=== PATIENT | male | born 1960 | race Two or more races ===

== ENCOUNTER 2024-06-30 14:35 | Outpatient (RCR) | payer MEDICAID, SELFPAY | END 2024-07-26 23:59 | disposition home or self-care (01) | LOC: SCTC 14:35 | PROVIDERS: PCP Nurse Practitioner Family; Referring Provider Nurse Practitioner Family; Visit Provider Nurse Practitioner Family | DX: D69.6 Thrombocytopenia, unspecified (principal); R91.1 Solitary pulmonary nodule; K74.60 Unspecified cirrhosis of liver; Z86.19 Personal history of other infectious and parasitic diseases; R91.8 Other nonspecific abnormal finding of lung field; Z87.891 Personal history of nicotine dependence | CPT/HCPCS: 99212; G0463 ==

== ENCOUNTER → 2024-07-28 | Outpatient (CLI) | payer MEDICAID, SELFPAY ==
--- NOTE | 2024-07-28 14:00 | XR_ITS ---
Examination: CT chest with intravenous contrast CT chest without intravenous contrast 2-D reconstructions Date and time of exam:July 28, [address] chest November 23, 2023, PET CT scan March 01, 2024 INDICATIONS: Thrombocytopenia diagnosis, 3 mm pulmonary nodule right lower lobe 4 mm pulmonary nodule right lower lobe on CT chest November 23, 2023, pulmonary mass in the right paratracheal region 24 x [address] scan March 01, 2024 CTDI:vol (mGy) 17.89 DLP: (mGycm) 691 Technique: Multiple axial sections of the thorax have been obtained. 3 mm slice thickness, from the hemidiaphragms to above the apices of the lungs. Mediastinal and lung density settings have been obtained. Intravenous contrast administered 60 cc Isovue-370. Noncontrast images have also been obtained. 2-D sagittal coronal images obtained. Low dose protocols were performed. One or more of the following dose reduction techniques were used; automated exposure control, adjustment of the mA and/or KV according to patient size, use of iterative reconstruction technique. Findings: No thoracic aortic aneurysm dilatation Pulmonary artery opacification is poor Stable stable high right paratracheal lesion, 20 mm compared to 24 mm on the prior study Stable 3 mm pulmonary nodule right lower lobe No interval pulmonary nodules No interval pneumonia or pulmonary edema No visualized liver or splenic lesion No pancreatic mass Moderate osteopenia IMPRESSION: No new pulmonary nodules compared with November 23, 2023
== END | disposition home or self-care (01) ==
LOC: SCAT 13:28
PROVIDERS: Referring Provider Internal Medicine Hematology & Oncology; Visit Provider Internal Medicine Hematology & Oncology
DX: R91.8 Other nonspecific abnormal finding of lung field (principal)
CPT/HCPCS: 71270; A4649; Q9967

== ENCOUNTER 2024-08-31 14:07 | Outpatient (RCR) | payer MEDICAID, SELFPAY ==
--- NOTE | 2024-08-31 15:42 | CTCFLWUP_ITS ---
Patient: ROLLY RINALDI : 1960 Page 2 of 2 FOLLOW UP NOTE DATE OF SERVICE: 08/31/2024 NAME: ROLLY RINALDI ACCOUNT: [id number] : 1960 AGE: 63 INTERVAL HISTORY: Patient doing well and have no complaints. Patient do not use cigarettes or alcohol. Denies any bleeding or bruising. Patient here to discuss CT scan results HISTORY OF PRESENT ILLNESS: Mr. Rinaldi is here at [facility] for follow-up visit. We received records from Dr. Torres, cardiothoracic surgeon, patient had a consultation on 02/01/2024 for recommended mediastinoscopy for biopsy of paratracheal adenopathy, according to the notes patient refused biopsy, they had difficulty getting him into the office for consultation as he canceled multiple times prior to consultation. Patient was again referred to contour grinder for bronchoscopy biopsy of pulmonary nodule in right lobe, patient reports he had a consultation with Dr. Prabhakar from [place], we do not have records. Patient does not remember when his follow-up appointment with Dr. Pamela bucio. Patient reports he had a followed up with GI in [place] earlier this year, was recommended to proceed with endoscopy, patient has not scheduled self for follow-up appointment. We do not have records from previous colonoscopy that he had done. Patient has a history of noncompliance. Patient smokes marijuana every day. History of smoking cigarettes. Patient complaining today of feeling tired, decreased appetite. Patient denies cough abdominal pain fever night sweats. Patient denies bleeding concerns, denies black stools, bright red stools blood per rectum. HISTORY: Rolly Rinaldi is a 63-year-old ENG speaking male referred to hematology clinic for thrombocytopenia. According to Mr. Rinaldi he was initially told about thrombocytopenia more than 10 years ago. Previous cigarette smoker about 30 years ago, one pack per day, quit cigarettes 20 years ago, current every day marijuana smoker. 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 02/07/2022: Platelet count 85,000, WBC 6.6, ANC 4.3, hemoglobin 14.3, MCV 92, creatinine 0.85, AST 22, ALT 16, T. bili 0.6, TSH 1.73, T47.3, 04/02/2022: Platelet count 72,000, WBC 5.5, ANC 3.6, hemoglobin 13.5, MCV 95. 03/12/2023: Platelet count 98,000, WBC 5.4, ANC 3.7, hemoglobin 14.6, MCV 92 04/22/2023: Platelet count 95,000, WBC 5.5, ANC 3.2, hemoglobin 14.3, MCV 94, hepatitis C antibody reactive, AFP 5.2 05/05/2023: CT of abdomen and pelvis with contrast- 05/13/2023: Platelet count 92,000, WBC 5.5, ANC 3.1, hemoglobin 13.7, MCV 93 05/14/2023 CT of the chest without contrast- 07/13/2023: Platelet count 89,000, WBC 4.4, ANC 2.6, hemoglobin 14.0, MCV 90 11/18/2023: Platelet count 82,000, WBC 4.1, ANC 2.6, hemoglobin 14.0, MCV 93 11/23/2023: CT chest with contrast 12/25/2023: Platelet count 62,000, WBC 4.9, ANC 3.0, hemoglobin 13.4, MCV 92 01/25/2024: Consultation with cardiothoracic surgeon, Dr. Torres 03/01/2024: PET/CT 03/11/2024: Platelet count 75,000, WBC 5.0, ANC 2.0, hemoglobin 13.0, MCV 93 05/17/2024: AFP 2.9 07/28/2024 CT scan shows no new pulmonary nodules compared with November 23, 2023. 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 amlodipine - 10 mg 1 tab Daily 2. busPIRone - 5 mg 1 tab Twice a Day 3. lisinopril - 40 mg 1 tab Daily 4. risperiDONE - 0.5 mg 1 tab Daily Medications Last Reconciled by Trudy Escamilla MA on 08/31/2024 ALLERGIES: No Known Drug Allergies REVIEW OF SYSTEMS: A complete 14-point review of systems was performed and is negative except as noted in interval history. PHYSICAL EXAMINATION: VITAL SIGNS: Temperature?98.2, B/P?153/75, Oxygen?Saturation?95% Weight?162?lbs PAIN: 2 - Mild pain ECOG Performance Status: 0 - Asymptomatic and fully active GENERAL APPEARANCE: Appears well, in no apparent distress, appropriately interactive. HEENT: Normocephalic, no temporal wasting, normal conjunctiva, no scleral icterus, normal hearing, lips without lesions, neck normal range of motion. CARDIOVASCULAR: Not assessed. PULMONARY: Normal respiratory effort, no respiratory distress or use of accessory muscles, speaking in full sentences, no tachypnea. EXTREMITIES: No pedal edema or cyanosis. SKIN: Normal skin appearance. NEUROLOGIC: Alert and oriented x4. PSHYCHIATRIC: Appropriate affect, mood normal, behavior normal, intact thought and speech. LABORATORY DATA: I have personally reviewed and interpreted each of the patient?s relevant lab tests, abnormal findings are below: Date ASSESSMENT/PLAN: #1. Asymptomatic chronic thrombocytopenia secondary to splenomegaly, and liver cirrhosis from chronic hepatitis B and hepatitis C s/p treatment Patient have cirrhosis stage II diagnosed about 10 years ago-diagnosed on biopsy on liver Platelets less than 100 No bleeding or bruising Patient follows with Dr. Prabhakar for his liver cirrhosis Will get MRI liver to 25 any hepatocellular tumor AFP within range Discussed with Mily Anthony that he need to have restaging of his cirrhosis so we will get a FibroScan Counseled patient not to drink alcohol or Tylenol Patient's thrombocytopenia is likely from both underlying cirrhosis and splenomegaly No intervention needed as long as patient do not have any bleeding or bruising or undergoing procedure Can get transfusion if patient is planned for procedure #2 pulmonary nodule Extensive history of smoking in the past Paratracheal lymph node is actually smaller in size and stable Will continue to follow CT scan in 6 months Patient does not want to do any biopsy at this time Will continue with active surveillance CBC CMP FibroScan MRI liver hepatitis panel CT scan chest in 6 months RETURN TO CLINIC: 2 months to review the labs BILLING AND COMPLIANCE: I reviewed external records from providers outside my specialty as summarized above. I spent a total of 50 minutes on this patient?s care on the day of their visit excluding time spent related to any billed procedures. This time includes time spent with the patient as well as time spent documenting in the medical record, reviewing patients records and tests, obtaining history, placing orders, communicating with other healthcare professionals, counseling the patient, family or caregiver, and/or care coordination for the diagnoses above. Electronically Signed by: Lorenzo Smallwood MD T: 3:40 PM CC: Fernando?Laina?Jenn,? PCP: Thuan Celis Referring: Cony Duff This document was completed utilizing speech recognition software. Grammatical errors, random word insertions, pronoun errors, and incomplete sentences are an occasional consequence of this system due to software limitations, ambient noise, and hardware issues. Any formal questions or concerns about the content, text or information contained within the body of this dictation should be directly addressed to the provider for clarification.
== END 2024-09-23 23:59 | disposition home or self-care (01) ==
LOC: SCTC 14:07
PROVIDERS: PCP Nurse Practitioner Family; Referring Provider Nurse Practitioner Family; Visit Provider Nurse Practitioner Family
DX: Z71.2 Person consulting for explanation of examination or test findings (principal); D69.6 Thrombocytopenia, unspecified; R91.1 Solitary pulmonary nodule; Z87.891 Personal history of nicotine dependence
CPT/HCPCS: 99212; G0463

== ENCOUNTER → 2024-09-28 | Outpatient (CLI) | payer MEDICAID, SELFPAY ==
--- NOTE | 2024-09-28 07:30 | XR_ITS ---
Examination: Ultrasound liver elastography Exam date and time: 07/31/2024 0721 hrs. Indications: Cirrhosis diagnosis 20 years ago, stage II, right upper abdominal pain 10 years Technique And Findings: Multiple sonographic images liver with assessment of tissue extending thickness average centimeters per second Liver 12.9 cm lobular contour Normal hepatopedal portal venous flow Patent hepatic veins Tissues to this average 1.68 m/s mild to moderate liver fibrosis Impression: [id number] liver fibrosis
== END | disposition home or self-care (01) ==
PROVIDERS: PCP Nurse Practitioner Family; Referring Provider Internal Medicine Hematology & Oncology; Visit Provider Internal Medicine Hematology & Oncology
DX: K74.00 Hepatic fibrosis, unspecified (principal)
CPT/HCPCS: 76981

== ENCOUNTER → 2024-09-29 | Outpatient (CLI) | payer MEDICAID, SELFPAY | END | disposition home or self-care (01) | LOC: SMRI 09:56 | PROVIDERS: Referring Provider Internal Medicine Hematology & Oncology; Visit Provider Internal Medicine Hematology & Oncology | DX: Z53.29 Procedure and treatment not carried out because of patient's decision for other reasons (principal) ==

== ENCOUNTER 2024-11-17 14:07 | Outpatient (RCR) | payer MEDICAID, SELFPAY ==
--- NOTE | 2024-11-22 02:14 | CTCFLWUP_ITS ---
Patient: ROLLY RINALDI : 1960 Page 4 of 6 FOLLOW UP NOTE DATE OF SERVICE: 11/17/2024 NAME: ROLLY RINALDI ACCOUNT: [id number] : 1960 AGE: 64 INTERVAL HISTORY: Patient doing well and have no complaints. Patient do not use cigarettes or alcohol. Denies any bleeding or bruising. Patient here to discuss CT scan results HISTORY OF PRESENT ILLNESS: Mr. Rinaldi is here at [facility] for follow-up visit. We received records from Dr. Torres, cardiothoracic surgeon, patient had a consultation on 02/01/2024 for recommended mediastinoscopy for biopsy of paratracheal adenopathy, according to the notes patient refused biopsy, they had difficulty getting him into the office for consultation as he canceled multiple times prior to consultation. Patient was again referred to architectural engineer for bronchoscopy biopsy of pulmonary nodule in right lobe, patient reports he had a consultation with Dr. Prabhakar from [place], we do not have records. Patient does not remember when his follow-up appointment with Dr. Pamela bucio. Patient reports he had a followed up with GI in [place] earlier this year, was recommended to proceed with endoscopy, patient has not scheduled self for follow-up appointment. We do not have records from previous colonoscopy that he had done. Patient has a history of noncompliance. Patient smokes marijuana every day. History of smoking cigarettes. Patient complaining today of feeling tired, decreased appetite. Patient denies cough abdominal pain fever night sweats. Patient denies bleeding concerns, denies black stools, bright red stools blood per rectum. HISTORY: Rolly Rinaldi is a 64-year-old ENG speaking male referred to hematology clinic for thrombocytopenia. According to Mr. Rinaldi he was initially told about thrombocytopenia more than 10 years ago. Previous cigarette smoker about 30 years ago, one pack per day, quit cigarettes 20 years ago, current every day marijuana smoker. 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 02/07/2022: Platelet count 85,000, WBC 6.6, ANC 4.3, hemoglobin 14.3, MCV 92, creatinine 0.85, AST 22, ALT 16, T. bili 0.6, TSH 1.73, T47.3, 04/02/2022: Platelet count 72,000, WBC 5.5, ANC 3.6, hemoglobin 13.5, MCV 95. 03/12/2023: Platelet count 98,000, WBC 5.4, ANC 3.7, hemoglobin 14.6, MCV 92 04/22/2023: Platelet count 95,000, WBC 5.5, ANC 3.2, hemoglobin 14.3, MCV 94, hepatitis C antibody reactive, AFP 5.2 05/05/2023: CT of abdomen and pelvis with contrast- 05/13/2023: Platelet count 92,000, WBC 5.5, ANC 3.1, hemoglobin 13.7, MCV 93 05/14/2023 CT of the chest without contrast- 07/13/2023: Platelet count 89,000, WBC 4.4, ANC 2.6, hemoglobin 14.0, MCV 90 11/18/2023: Platelet count 82,000, WBC 4.1, ANC 2.6, hemoglobin 14.0, MCV 93 11/23/2023: CT chest with contrast 12/25/2023: Platelet count 62,000, WBC 4.9, ANC 3.0, hemoglobin 13.4, MCV 92 01/25/2024: Consultation with cardiothoracic surgeon, Dr. Torres 03/01/2024: PET/CT 03/11/2024: Platelet count 75,000, WBC 5.0, ANC 2.0, hemoglobin 13.0, MCV 93 05/17/2024: AFP 2.9 07/28/2024 CT scan shows no new pulmonary nodules compared with November 23, 2023. 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 amlodipine - 10 mg 1 tab Daily 2. busPIRone - 5 mg 1 tab Twice a Day 3. lisinopril - 40 mg 1 tab Daily 4. risperiDONE - 0.5 mg 1 tab Daily Medications Last Reconciled by Trudy Escamilla MA on 11/17/2024 ALLERGIES: No Known Drug Allergies REVIEW OF SYSTEMS: A complete 14-point review of systems was performed and is negative except as noted in interval history. PHYSICAL EXAMINATION: VITAL SIGNS: Temperature?98.5, B/P?136/77, Oxygen?Saturation?94% PAIN: 0 - No pain GENERAL APPEARANCE: Appears well, in no apparent distress, appropriately interactive. HEENT: Normocephalic, no temporal wasting, normal conjunctiva, no scleral icterus, normal hearing, lips without lesions, neck normal range of motion. CARDIOVASCULAR: Not assessed. PULMONARY: Normal respiratory effort, no respiratory distress or use of accessory muscles, speaking in full sentences, no tachypnea. EXTREMITIES: No pedal edema or cyanosis. SKIN: Normal skin appearance. NEUROLOGIC: Alert and oriented x4. PSHYCHIATRIC: Appropriate affect, mood normal, behavior normal, intact thought and speech. LABORATORY DATA: I have personally reviewed and interpreted each of the patient?s relevant lab tests, abnormal findings are below: Date ASSESSMENT/PLAN: #1. Asymptomatic chronic thrombocytopenia secondary to splenomegaly, and liver cirrhosis from chronic hepatitis B and hepatitis C s/p treatment Patient have cirrhosis stage II diagnosed about 10 years ago-diagnosed on biopsy on liver Platelets less than 100 No bleeding or bruising Patient follows with Dr. Prabhakar for his liver cirrhosis Will get MRI liver to 25 any hepatocellular tumor AFP within range Discussed with Mily Anthony that he need to have restaging of his cirrhosis so we will get a FibroScan Counseled patient not to drink alcohol or Tylenol Patient's thrombocytopenia is likely from both underlying cirrhosis and splenomegaly No intervention needed as long as patient do not have any bleeding or bruising or undergoing procedure Can get transfusion if patient is planned for procedure #2 pulmonary nodule Extensive history of smoking in the past Paratracheal lymph node is actually smaller in size and stable Will continue to follow CT scan in 6 months Patient does not want to do any biopsy at this time Will continue with active surveillance CBC CMP FibroScan MRI liver hepatitis panel CT scan chest in 6 months ORDERS: Order # Description [id number] CT Scan + With W/O Contrast + Chest RETURN TO CLINIC: BILLING AND COMPLIANCE: I reviewed external records from providers outside my specialty as summarized above. I spent a total of 50 minutes on this patient?s care on the day of their visit excluding time spent related to any billed procedures. This time includes time spent with the patient as well as time spent documenting in the medical record, reviewing patients records and tests, obtaining history, placing orders, communicating with other healthcare professionals, counseling the patient, family or caregiver, and/or care coordination for the diagnoses above. Electronically Signed by: Lorenzo Smallwood MD T: 2:12 AM CC: Fernando?Laina?Jenn,? PCP: No Primary/family, Physician Referring: Cony Duff This document was completed utilizing speech recognition software. Grammatical errors, random word insertions, pronoun errors, and incomplete sentences are an occasional consequence of this system due to software limitations, ambient noise, and hardware issues. Any formal questions or concerns about the content, text or information contained within the body of this dictation should be directly addressed to the provider for clarification.
== END 2024-11-23 23:59 | disposition home or self-care (01) ==
LOC: SCTC 14:07
PROVIDERS: Referring Provider Nurse Practitioner Family; Visit Provider Internal Medicine Hematology & Oncology
DX: D69.6 Thrombocytopenia, unspecified (principal); K74.60 Unspecified cirrhosis of liver; Z86.19 Personal history of other infectious and parasitic diseases; R91.1 Solitary pulmonary nodule; Z71.2 Person consulting for explanation of examination or test findings; Z87.891 Personal history of nicotine dependence
CPT/HCPCS: 99212; G0463

== ENCOUNTER 2025-01-23 10:12 | Outpatient (RCR) | payer MEDICAID, SELFPAY ==
--- NOTE | 2025-01-23 13:53 | CTCFLWUP_ITS ---
Patient: ROLLY RINALDI : 1960 Page 2 of 2 FOLLOW UP NOTE DATE OF SERVICE: 01/23/2025 NAME: ROLLY RINALDI ACCOUNT: [id number] : 1960 AGE: 64 INTERVAL HISTORY: Patient is here for follow-up. Patient complains of worsening shortness of breath. Patient says that shortness of breath mostly at nighttime and on exertion. Patient has never been diagnosed with COPD. Patient is not a current smoker. Patient have an extensive history of smoking in the past ONCOLOGY HISTORY: DIAGNOSIS: No cancer diagnosis. Patient follows with us for thrombocytopenia and lung nodule which he has refused to biopsy HISTORY OF PRESENT ILLNESS: Mr. Rinaldi is here at [facility] cancer treatment center for follow-up visit. We received records from Dr. Torres, cardiothoracic surgeon, patient had a consultation on 02/01/2024 for recommended mediastinoscopy for biopsy of paratracheal adenopathy, according to the notes patient refused biopsy, they had difficulty getting him into the office for consultation as he canceled multiple times prior to consultation. Patient was again referred to buyer tobacco head for bronchoscopy biopsy of pulmonary nodule in right lobe, patient reports he had a consultation with Dr. Prabhakar from [place], we do not have records. Patient does not remember when his follow-up appointment with Dr. Pamela bucio. Patient reports he had a followed up with GI in [place] earlier this year, was recommended to proceed with endoscopy, patient has not scheduled self for follow-up appointment. We do not have records from previous colonoscopy that he had done. Patient has a history of noncompliance. Patient smokes marijuana every day. History of smoking cigarettes. Patient complaining today of feeling tired, decreased appetite. Patient denies cough abdominal pain fever night sweats. Patient denies bleeding concerns, denies black stools, bright red stools blood per rectum. HISTORY: Rolly Rinaldi is a 64-year-old ENG speaking male referred to hematology clinic for thrombocytopenia. According to Mr. Rinaldi he was initially told about thrombocytopenia more than 10 years ago. Previous cigarette smoker about 30 years ago, one pack per day, quit cigarettes 20 years ago, current every day marijuana smoker. 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 02/07/2022: Platelet count 85,000, WBC 6.6, ANC 4.3, hemoglobin 14.3, MCV 92, creatinine 0.85, AST 22, ALT 16, T. bili 0.6, TSH 1.73, T47.3, 04/02/2022: Platelet count 72,000, WBC 5.5, ANC 3.6, hemoglobin 13.5, MCV 95. 03/12/2023: Platelet count 98,000, WBC 5.4, ANC 3.7, hemoglobin 14.6, MCV 92 04/22/2023: Platelet count 95,000, WBC 5.5, ANC 3.2, hemoglobin 14.3, MCV 94, hepatitis C antibody reactive, AFP 5.2 05/05/2023: CT of abdomen and pelvis with contrast- 05/13/2023: Platelet count 92,000, WBC 5.5, ANC 3.1, hemoglobin 13.7, MCV 93 05/14/2023 CT of the chest without contrast- 07/13/2023: Platelet count 89,000, WBC 4.4, ANC 2.6, hemoglobin 14.0, MCV 90 11/18/2023: Platelet count 82,000, WBC 4.1, ANC 2.6, hemoglobin 14.0, MCV 93 11/23/2023: CT chest with contrast 12/25/2023: Platelet count 62,000, WBC 4.9, ANC 3.0, hemoglobin 13.4, MCV 92 01/25/2024: Consultation with cardiothoracic surgeon, Dr. Torres 03/01/2024: PET/CT 03/11/2024: Platelet count 75,000, WBC 5.0, ANC 2.0, hemoglobin 13.0, MCV 93 05/17/2024: AFP 2.9 07/28/2024 CT scan shows no new pulmonary nodules compared with November 23, 2023. 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 amlodipine - 10 mg 1 tab Daily 2. busPIRone - 5 mg 1 tab Twice a Day 3. lisinopril - 40 mg 1 tab Daily 4. risperiDONE - 0.5 mg 1 tab Daily Medications Last Reconciled by Trudy Escamilla MA on 01/23/2025 ALLERGIES: No Known Drug Allergies REVIEW OF SYSTEMS: A complete 14-point review of systems was performed and is negative except as noted in interval history. PHYSICAL EXAMINATION: VITAL SIGNS: Temperature?99.1, B/P?121/74, Oxygen?Saturation?96% PAIN: 0 - No pain GENERAL APPEARANCE: Appears well, in no apparent distress, appropriately interactive. HEENT: Normocephalic, no temporal wasting, normal conjunctiva, no scleral icterus, normal hearing, lips without lesions, neck normal range of motion. CARDIOVASCULAR: Not assessed. PULMONARY: Normal respiratory effort, no respiratory distress or use of accessory muscles, speaking in full sentences, no tachypnea. EXTREMITIES: No pedal edema or cyanosis. SKIN: Normal skin appearance. NEUROLOGIC: Alert and oriented x4. PSHYCHIATRIC: Appropriate affect, mood normal, behavior normal, intact thought and speech. LABORATORY DATA: I have personally reviewed and interpreted each of the patient?s relevant lab tests, abnormal findings are below: Date ASSESSMENT/PLAN: #1. 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 Prabhakar for his liver cirrhosis AFP within range Discussed with Mr. Rinaldi that he need to have restaging of his cirrhosis so we will get a FibroScan Counseled patient not to drink alcohol or Tylenol Patient's thrombocytopenia is likely from both underlying cirrhosis and splenomegaly No intervention needed as long as patient do not have any bleeding or bruising or undergoing procedure Can get transfusion if patient is planned for procedure Patient has not done any new CBC so advised to do the blood work before next appointment Continue to monitor #2 pulmonary nodule Extensive history of smoking in the past Paratracheal lymph node is actually smaller in size and stable Will continue to follow CT scan in 6 months Patient does not want to do any biopsy at this time Will continue with active surveillance CBC CMP FibroScan MRI liver hepatitis panel CT scan chest in 6 months ORDERS: Order # Description [id number] Comprehensive Metabolic Panel - 12 + CBC with Auto Diff [id number] CT Scan + Chest + With W/O Contrast [id number] Follow Up [id number] Scan + With W/O Contrast + Chest RETURN TO CLINIC: I reviewed the diagnosis, prognosis, and recommended treatment/procedure options with the patient (and/or their legal outbound call center representative), including the potential benefits, risks, side effects and alternative therapies. We also discussed the option of no treatment and the possibility of clinical trial participation, if applicable. All questions were addressed, and they demonstrated understanding. They provided informed consent to proceed with the proposed plan of care. BILLING AND COMPLIANCE: I reviewed external records from providers outside my specialty as summarized above. I spent a total of 50 minutes on this patient?s care on the day of their visit excluding time spent related to any billed procedures. This time includes time spent with the patient as well as time spent documenting in the medical record, reviewing patients records and tests, obtaining history, placing orders, communicating with other healthcare professionals, counseling the patient, family or caregiver, and/or care coordination for the diagnoses above. Electronically Signed by: Lorenzo Smallwood MD T: 1:50 PM CC: Fernanod?Laina?Jenn,? PCP: Lorenzo Smallwood Referring: Lorenzo Smallwood This document was completed utilizing speech recognition software. Grammatical errors, random word insertions, pronoun errors, and incomplete sentences are an occasional consequence of this system due to software limitations, ambient noise, and hardware issues. Any formal questions or concerns about the content, text or information contained within the body of this dictation should be directly addressed to the provider for clarification.
== END 2025-01-23 23:59 | disposition home or self-care (01) ==
LOC: SCTC 10:12
PROVIDERS: Referring Provider Internal Medicine Hematology & Oncology; Visit Provider Internal Medicine Hematology & Oncology
DX: D69.6 Thrombocytopenia, unspecified (principal); R16.1 Splenomegaly, not elsewhere classified; K74.60 Unspecified cirrhosis of liver; R91.1 Solitary pulmonary nodule; J44.9 Chronic obstructive pulmonary disease, unspecified
CPT/HCPCS: 99212; G0463

== ENCOUNTER 2025-01-31 12:43 | Outpatient (RCR) | payer MEDICAID, SELFPAY ==
--- NOTE | 2025-01-31 13:10 | PT.OIERPT ---
PT OP Initial Eval Patient Information Outpatient Physical Therapy Treatment Date: 01/31/25 Visit Reasons: Knee pain Medical Diagnosis: M17.0 Start of Care: 01/31/25 Date of Onset: 5 yrs ago Smoking Status Smoking Status: Former smoker Tobacco Use: Cigarette Years smoked: 20 Initial Assessment Subjective: Pt is 64 yr old male reports long Hx of B knee pain L>R. The pain limits him from going up stairs and prolonged walking >5 minutes and then he rests the knee. PMH: HTN, DM, kidney issues, cirrhosis of the liver Imaging: Xray report of L knee moderate OA change Pt goal: less knee pain to walk further Objective: B bknee AROM: Flexion: 120 deg Extension: full Karla's: positive B Varus/valgus: mild/moderate gapping into varus Squat: 40% depth with B knee pain Assessment: Pt presents with B knee pain consistent with referring Dx of OA. Pt not likely going to benefit from skilled therapy to meet goals due to severity and chronicity of ssx and poor exercise tolerance of 5 mins on the recumbent bike with high pain level. PT recommends further diagnostic imaging of the knees such as MRI. Short Term and Singing Telegram Performer Goals Eval and D/C Treatment Plan Eval and D/C Certification Dates: 01/31/25 to 02/01/25 Procedure Charges OP PT Eval Mod Complex 30 minutes: Yes
== END 2025-02-23 23:59 | disposition home or self-care (01) ==
LOC: CPTX 12:43
DX: M25.562 Pain in left knee (principal); M25.561 Pain in right knee; M17.0 Bilateral primary osteoarthritis of knee; I10 Essential (primary) hypertension; E11.9 Type 2 diabetes mellitus without complications
CPT/HCPCS: 97162

== ENCOUNTER → 2025-03-08 | Outpatient (CLI) | payer MEDICAID, SELFPAY ==
--- NOTE | 2025-03-08 15:30 | XR_ITS ---
Examination: CT chest with intravenous contrast CT chest without intravenous contrast 2-D reconstructions Date and time of exam:March 08, 2025, 1555 hours Comparison July 28, 2024 CT chest, PET/CT scan March 01, 2024, CT chest November 23, 2023 INDICATIONS: Diagnosis thrombocytopenia, CT chest July 28, 2024 right paratracheal lymph node 20 mm, 3 mm pulmonary nodule right lower lobe CTDI:vol (mGy) 16.01 DLP: (mGycm) 609 Technique: Multiple axial sections of the thorax have been obtained. 3 mm slice thickness, from the hemidiaphragms to above the apices of the lungs. Mediastinal and lung density settings have been obtained. Intravenous contrast administered 60 cc Isovue-370. Noncontrast images have also been obtained. 2-D sagittal coronal images obtained. Low dose protocols were performed. One or more of the following dose reduction techniques were used; automated exposure control, adjustment of the mA and/or KV according to patient size, use of iterative reconstruction technique. Findings: Stable high right paratracheal lymph node, 20 mm, axial image 52 No new mediastinal lymphadenopathy Aorta is not enlarged Pulmonary artery segments are not enlarged No pulmonary artery filling defects. On the current study no convincing pulmonary nodules No pneumonia or pulmonary edema or pleural disease Liver is mildly irregular in contour, no focal liver lesions Cholelithiasis, negative for cholecystitis Spleen is not enlarged No pancreatic or adrenal mass 20 mm right renal cyst Moderate osteopenia IMPRESSION: Stable high right paratracheal lymph node, 20 mm No new mediastinal lymphadenopathy On this study no convincing pulmonary nodules Cholelithiasis, negative for cholecystitis Suspect primary hepatocellular disease
== END | disposition home or self-care (01) ==
LOC: SCAT 14:57
PROVIDERS: Referring Provider Internal Medicine Hematology & Oncology; Visit Provider Internal Medicine Hematology & Oncology
DX: K80.20 Calculus of gallbladder without cholecystitis without obstruction (principal)
CPT/HCPCS: 71270; A4649; Q9967

== ENCOUNTER 2025-03-22 11:14 | Outpatient (RCR) | payer MEDICAID, SELFPAY ==
--- NOTE | 2025-03-27 19:44 | CTCFLWUP_ITS ---
Patient: ROLLY RINALDI : 1960 Page 4 of 6 FOLLOW UP NOTE DATE OF SERVICE: 03/22/2025 NAME: ROLLY RINALDI ACCOUNT: [id number] : 1960 AGE: 64 INTERVAL HISTORY: Patient is here for follow-up. Patient complains of worsening shortness of breath. Patient says that shortness of breath mostly at nighttime and on exertion. Patient has never been diagnosed with COPD. Patient is not a current smoker. Patient have an extensive history of smoking in the past ONCOLOGY HISTORY: DIAGNOSIS: No cancer diagnosis. Patient follows with us for thrombocytopenia and lung nodule which he has refused to biopsy TREATMENT HISTORY: Care?Plan Start?Date Cycle Day Intent HISTORY OF PRESENT ILLNESS: Mr. Rinaldi is here at [facility] medical cancer treatment center for follow-up visit. We received records from Dr. Torres, cardiothoracic surgeon, patient had a consultation on 02/01/2024 for recommended mediastinoscopy for biopsy of paratracheal adenopathy, according to the notes patient refused biopsy, they had difficulty getting him into the office for consultation as he canceled multiple times prior to consultation. Patient was again referred to behavioral health counselor for bronchoscopy biopsy of pulmonary nodule in right lobe, patient reports he had a consultation with Dr. Prabhakar from [place], we do not have records. Patient does not remember when his follow-up appointment with Dr. Pamela bucio. Patient reports he had a followed up with GI in [place] earlier this year, was recommended to proceed with endoscopy, patient has not scheduled self for follow-up appointment. We do not have records from previous colonoscopy that he had done. Patient has a history of noncompliance. Patient smokes marijuana every day. History of smoking cigarettes. Patient complaining today of feeling tired, decreased appetite. Patient denies cough abdominal pain fever night sweats. Patient denies bleeding concerns, denies black stools, bright red stools blood per rectum. HISTORY: Rolly Rinaldi is a 64-year-old ENG speaking male referred to hematology clinic for thrombocytopenia. According to Mr. Rinaldi he was initially told about thrombocytopenia more than 10 years ago. Previous cigarette smoker about 30 years ago, one pack per day, quit cigarettes 20 years ago, current every day marijuana smoker. 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 02/07/2022: Platelet count 85,000, WBC 6.6, ANC 4.3, hemoglobin 14.3, MCV 92, creatinine 0.85, AST 22, ALT 16, T. bili 0.6, TSH 1.73, T47.3, 04/02/2022: Platelet count 72,000, WBC 5.5, ANC 3.6, hemoglobin 13.5, MCV 95. 03/12/2023: Platelet count 98,000, WBC 5.4, ANC 3.7, hemoglobin 14.6, MCV 92 04/22/2023: Platelet count 95,000, WBC 5.5, ANC 3.2, hemoglobin 14.3, MCV 94, hepatitis C antibody reactive, AFP 5.2 05/05/2023: CT of abdomen and pelvis with contrast- 05/13/2023: Platelet count 92,000, WBC 5.5, ANC 3.1, hemoglobin 13.7, MCV 93 05/14/2023 CT of the chest without contrast- 07/13/2023: Platelet count 89,000, WBC 4.4, ANC 2.6, hemoglobin 14.0, MCV 90 11/18/2023: Platelet count 82,000, WBC 4.1, ANC 2.6, hemoglobin 14.0, MCV 93 11/23/2023: CT chest with contrast 12/25/2023: Platelet count 62,000, WBC 4.9, ANC 3.0, hemoglobin 13.4, MCV 92 01/25/2024: Consultation with cardiothoracic surgeon, Dr. Torres 03/01/2024: PET/CT 03/11/2024: Platelet count 75,000, WBC 5.0, ANC 2.0, hemoglobin 13.0, MCV 93 05/17/2024: AFP 2.9 07/28/2024 CT scan shows no new pulmonary nodules compared with November 23, 2023. 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 amlodipine - 10 mg 1 tab Daily 2. busPIRone - 5 mg 1 tab Twice a Day 3. lisinopril - 40 mg 1 tab Daily 4. risperiDONE - 0.5 mg 1 tab Daily Medications Last Reconciled by Devika Frazier MD on 03/22/2025 ALLERGIES: No Known Drug Allergies REVIEW OF SYSTEMS: A complete 14-point review of systems was performed and is negative except as noted in interval history. PHYSICAL EXAMINATION: VITAL SIGNS: Temperature?98.6, B/P?129/69, Oxygen?Saturation?96% Weight?162?lbs PAIN: 0 - No pain GENERAL APPEARANCE: Appears well, in no apparent distress, appropriately interactive. HEENT: Normocephalic, no temporal wasting, normal conjunctiva, no scleral icterus, normal hearing, lips without lesions, neck normal range of motion. CARDIOVASCULAR: Not assessed. PULMONARY: Normal respiratory effort, no respiratory distress or use of accessory muscles, speaking in full sentences, no tachypnea. EXTREMITIES: No pedal edema or cyanosis. SKIN: Normal skin appearance. NEUROLOGIC: Alert and oriented x4. PSHYCHIATRIC: Appropriate affect, mood normal, behavior normal, intact thought and speech. LABORATORY DATA: I have personally reviewed and interpreted each of the patient?s relevant lab tests, abnormal findings are below: Date ASSESSMENT/PLAN: #1. 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 Prabhakar for his liver cirrhosis AFP within range Discussed with Mr. Rinaldi that he need to have restaging of his cirrhosis so we will get a FibroScan Counseled patient not to drink alcohol or Tylenol Patient's thrombocytopenia is likely from both underlying cirrhosis and splenomegaly No intervention needed as long as patient do not have any bleeding or bruising or undergoing procedure Can get transfusion if patient is planned for procedure Patient has not done any new CBC so advised to do the blood work before next appointment Continue to monitor #2 pulmonary nodule Extensive history of smoking in the past Paratracheal lymph node is actually smaller in size and stable Will continue to follow CT scan in 6 months Patient does not want to do any biopsy at this time Will continue with active surveillance CBC CMP FibroScan MRI liver hepatitis panel CT scan chest in 6 months ORDERS: Order # Description [id number] Follow Up 6 Month + Comprehensive Metabolic Panel - 12 + CBC with Auto Diff RETURN TO CLINIC: I reviewed the diagnosis, prognosis, and recommended treatment/procedure options with the patient (and/or their legal sales representative church furniture), including the potential benefits, risks, side effects and alternative therapies. We also discussed the option of no treatment and the possibility of clinical trial participation, if applicable. All questions were addressed, and they demonstrated understanding. They provided informed consent to proceed with the proposed plan of care. BILLING AND COMPLIANCE: I reviewed external records from providers outside my specialty as summarized above. I spent a total of 50 minutes on this patient?s care on the day of their visit excluding time spent related to any billed procedures. This time includes time spent with the patient as well as time spent documenting in the medical record, reviewing patients records and tests, obtaining history, placing orders, communicating with other healthcare professionals, counseling the patient, family or caregiver, and/or care coordination for the diagnoses above. Electronically Signed by: Lorenzo Smallwood MD T: 7:41 PM CC: Fernando?Laina?Jenn,? PCP: Juan Chambers Referring: Juan Chambers This document was completed utilizing speech recognition software. Grammatical errors, random word insertions, pronoun errors, and incomplete sentences are an occasional consequence of this system due to software limitations, ambient noise, and hardware issues. Any formal questions or concerns about the content, text or information contained within the body of this dictation should be directly addressed to the provider for clarification.
== END 2025-03-26 23:59 | disposition home or self-care (01) ==
LOC: SCTC 11:14
PROVIDERS: Visit Provider Internal Medicine Hematology & Oncology
DX: D69.6 Thrombocytopenia, unspecified (principal); R06.02 Shortness of breath; Z87.891 Personal history of nicotine dependence; R16.1 Splenomegaly, not elsewhere classified; K74.60 Unspecified cirrhosis of liver; R91.1 Solitary pulmonary nodule; B18.1 Chronic viral hepatitis B without delta-agent; B18.2 Chronic viral hepatitis C
CPT/HCPCS: 99212; G0463

== ENCOUNTER 2025-06-26 10:02 | Outpatient (RCR) | payer MEDICAID, SELFPAY ==
--- NOTE | 2025-06-26 10:58 | CTCFLWUP_ITS ---
Patient: ROLLY RINALDI : 1960 Page 4 of 6 FOLLOW UP NOTE DATE OF SERVICE: 06/26/2025 NAME: ROLLY RINALDI ACCOUNT: [id number] : 1960 AGE: 64 INTERVAL HISTORY: Patient not a current smoker . patient could not be seen at [facility] and will be sent to [facility]. Patient is not a current smoker. Patient have an extensive history of smoking in the past . ONCOLOGY HISTORY:?[facility] Hx? DIAGNOSIS: No cancer diagnosis. Patient follows with us for thrombocytopenia and lung nodule which he has refused to biopsy. Last ct scan shows no lesion . TREATMENT HISTORY: Care?Plan Start?Date Cycle Day Intent HISTORY OF PRESENT ILLNESS: Mr. Rinaldi is here at [facility] for follow-up visit. We received records from Dr. Torres, cardiothoracic surgeon, patient had a consultation on 02/01/2024 for recommended mediastinoscopy for biopsy of paratracheal adenopathy, according to the notes patient refused biopsy, they had difficulty getting him into the office for consultation as he canceled multiple times prior to consultation. Patient was again referred to medical educator for bronchoscopy biopsy of pulmonary nodule in right lobe, patient reports he had a consultation with Dr. Prabhakar from [place], we do not have records. Patient does not remember when his follow-up appointment with Dr. Pamela bucio. Patient reports he had a followed up with GI in [place] earlier this year, was recommended to proceed with endoscopy, patient has not scheduled self for follow-up appointment. We do not have records from previous colonoscopy that he had done. Patient has a history of noncompliance. Patient smokes marijuana every day. History of smoking cigarettes. Patient complaining today of feeling tired, decreased appetite. Patient denies cough abdominal pain fever night sweats. Patient denies bleeding concerns, denies black stools, bright red stools blood per rectum. HISTORY: Rolly Rinaldi is a 64-year-old ENG speaking male referred to hematology clinic for thrombocytopenia. According to Mr. Rinaldi he was initially told about thrombocytopenia more than 10 years ago. Previous cigarette smoker about 30 years ago, one pack per day, quit cigarettes 20 years ago, current every day marijuana smoker. 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 02/07/2022: Platelet count 85,000, WBC 6.6, ANC 4.3, hemoglobin 14.3, MCV 92, creatinine 0.85, AST 22, ALT 16, T. bili 0.6, TSH 1.73, T47.3, 04/02/2022: Platelet count 72,000, WBC 5.5, ANC 3.6, hemoglobin 13.5, MCV 95. 03/12/2023: Platelet count 98,000, WBC 5.4, ANC 3.7, hemoglobin 14.6, MCV 92 04/22/2023: Platelet count 95,000, WBC 5.5, ANC 3.2, hemoglobin 14.3, MCV 94, hepatitis C antibody reactive, AFP 5.2 05/05/2023: CT of abdomen and pelvis with contrast- 05/13/2023: Platelet count 92,000, WBC 5.5, ANC 3.1, hemoglobin 13.7, MCV 93 05/14/2023 CT of the chest without contrast- 07/13/2023: Platelet count 89,000, WBC 4.4, ANC 2.6, hemoglobin 14.0, MCV 90 11/18/2023: Platelet count 82,000, WBC 4.1, ANC 2.6, hemoglobin 14.0, MCV 93 11/23/2023: CT chest with contrast 12/25/2023: Platelet count 62,000, WBC 4.9, ANC 3.0, hemoglobin 13.4, MCV 92 01/25/2024: Consultation with cardiothoracic surgeon, Dr. Torres 03/01/2024: PET/CT 03/11/2024: Platelet count 75,000, WBC 5.0, ANC 2.0, hemoglobin 13.0, MCV 93 05/17/2024: AFP 2.9 07/28/2024 CT scan shows no new pulmonary nodules compared with November 23, 2023. 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 amlodipine - 10 mg 1 tab Daily 2. busPIRone - 5 mg 1 tab Twice a Day 3. lisinopril - 40 mg 1 tab Daily 4. risperiDONE - 0.5 mg 1 tab Daily?Palabra Meds? Medications Last Reconciled by Devika Frazier MD on 06/26/2025 ALLERGIES: No Known Drug Allergies REVIEW OF SYSTEMS: A complete 14-point review of systems was performed and is negative except as noted in interval history. PHYSICAL EXAMINATION:?Angela PE? VITAL SIGNS: Temperature?99.2, B/P?156/77, Oxygen?Saturation?96% Weight?164?lbs PAIN: 0 - No pain ECOG Performance Status: 0 - Asymptomatic and fully active GENERAL APPEARANCE: Appears well, in no apparent distress, appropriately interactive. HEENT: Normocephalic, no temporal wasting, normal conjunctiva, no scleral icterus, normal hearing, lips without lesions, neck normal range of motion. CARDIOVASCULAR: Not assessed. PULMONARY: Normal respiratory effort, no respiratory distress or use of accessory muscles, speaking in full sentences, no tachypnea. EXTREMITIES: No pedal edema or cyanosis. SKIN: Normal skin appearance. NEUROLOGIC: Alert and oriented x4. PSHYCHIATRIC: Appropriate affect, mood normal, behavior normal, intact thought and speech. LABORATORY DATA: I have personally reviewed and interpreted each of the patient?s relevant lab tests, abnormal findings are below: Date ASSESSMENT/PLAN:?Angela Smallwood Assessment/Plan? #1. 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 Prabhakar for his liver cirrhosis AFP within range Patient was referred to [facility] but could not be seen there as his insurance is not accepted Will refer to liver specialist at [facility] MRI and FibroScan of the liver ordered in 6 months to evaluate for cirrhosis as well as any underlying cancer in the liver Patient's hepatitis panel reviewed and patient says he has been treated with [facility] in the past Patient is being referred to back filler operator to follow closely at [facility] #2 pulmonary nodule Extensive history of smoking in the past Paratracheal lymph node is actually smaller in size and stable Will continue to follow Patient does not want to do any biopsy at this time Will continue with active surveillance every year ORDERS: Order # Description [id number] Comprehensive Metabolic Panel - 12 + CBC with Auto Diff + AFP [id number] Follow Up 6 Month RETURN TO CLINIC: I reviewed the diagnosis, prognosis, and recommended treatment/procedure options with the patient (and/or their legal sales representative meats), including the potential benefits, risks, side effects and alternative therapies. We also discussed the option of no treatment and the possibility of clinical trial participation, if applicable. All questions were addressed, and they demonstrated understanding. They provided informed consent to proceed with the proposed plan of care. BILLING AND COMPLIANCE: I reviewed external records from providers outside my specialty as summarized above. I spent a total of 50 minutes on this patient?s care on the day of their visit excluding time spent related to any billed procedures. This time includes time spent with the patient as well as time spent documenting in the medical record, reviewing patients records and tests, obtaining history, placing orders, communicating with other healthcare professionals, counseling the patient, family or caregiver, and/or care coordination for the diagnoses above. Electronically Signed by: Lorenzo Smallwood MD T: 10:56 AM CC: Fernando?Laina?Jenn,? PCP: Juan Chambers Referring: Juan Chambers This document was completed utilizing speech recognition software. Grammatical errors, random word insertions, pronoun errors, and incomplete sentences are an occasional consequence of this system due to software limitations, ambient noise, and hardware issues. Any formal questions or concerns about the content, text or information contained within the body of this dictation should be directly addressed to the provider for clarification.
== END 2025-07-26 23:59 | disposition home or self-care (01) ==
LOC: SCTC 10:02
PROVIDERS: Visit Provider Internal Medicine Hematology & Oncology
DX: D69.6 Thrombocytopenia, unspecified (principal); Z87.891 Personal history of nicotine dependence; R91.1 Solitary pulmonary nodule; R16.1 Splenomegaly, not elsewhere classified; K74.60 Unspecified cirrhosis of liver
CPT/HCPCS: 99212; J7040; G0463